=== PATIENT | male | born 1995 | race African-American/Black ===

== ENCOUNTER 2017-09-29 04:55 | Emergency (ER) | payer OTHER ==
[~2017-09-29] VITALS: Ht 175.3 cm; Wt 88.6 kg
[2017-09-29 06:09] VITALS: BP 128/76
[2017-09-29] MEDS ORDERED: ONDANSETRON HCL 4 MG TABLET PO ONE (07:00)
== END 2017-09-29 08:52 | disposition home or self-care (01) ==
LOC: EMS 04:57
DX: T40.4X1A Poisoning by other synthetic narcotics, accidental (unintentional), initial encounter (principal); R42 Dizziness and giddiness; J45.909 Unspecified asthma, uncomplicated; Y92.89 Other specified places as the place of occurrence of the external cause
CPT/HCPCS: 99283; Q0162